=== PATIENT | female | born 1995 | race Caucasian/White ===

== ENCOUNTER 2018-02-03 23:31 | Inpatient (IN) | payer OTHER ==
[2018-02-04] MEDS ORDERED: MISOPROSTOL 200 MCG TAB PR (00:30)
[2018-02-04] MEDS ORDERED: LIDOCAINE 1% (MPF) 30 ML INJ INJ (00:30)
[2018-02-04] MEDS ORDERED: BUTORPHANOL 2 MG INJ IV (00:30)
[2018-02-04] MEDS ORDERED: CARBOPROST 250 MCG INJ IM (00:30)
[2018-02-04] MEDS ORDERED: OXYTOCIN 30 UNITS/LR 500 ML IV (00:30)
[2018-02-04] MEDS ORDERED: IBUPROFEN 600 MG TAB PO (00:30)
[2018-02-04] MEDS ORDERED: METHYLERGONOVINE 0.2 MG INJ IM (00:30)
[2018-02-04 01:20] LABS: ADD MAN DIFF? NO
[2018-02-04 01:21] LABS: BASOPHILS % 0.2 % (0.0-2.0); EOSINOPHILS # 0.1 10^3/ul (0.0-0.5); EOSINOPHILS % 0.6 % (0.0-7.0); HEMATOCRIT 36.4 % (37.0-47.0); HEMOGLOBIN 12.9 g/dl (12.0-16.0); LYMPHOCYTES # 2.1 10^3/ul (0.8-2.9); LYMPHOCYTES % 19.9 % (15.0-51.0); MEAN CORPUSCULAR HEMOGLOBIN 33.7 pg (29.0-33.0); MEAN CORPUSCULAR HGB CONC 35.4 g/dl (32.0-37.0); MONOCYTE # 0.7 10^3/ul (0.3-0.9); MONOCYTES % 6.2 % (0.0-11.0); NEUTROPHIL # 7.8 10^3/ul (1.6-7.5); NEUTROPHILS % 72.7 % (39.0-77.0); PLATELET COUNT 182 10^3/UL (140-415); RED BLOOD COUNT 3.83 10^6/ul (4.20-5.40); RED CELL DISTRIBUTION WIDTH 11.9 % (11.5-14.5)
[2018-02-04 01:21] LABS: WHITE BLOOD COUNT 10.7 10^3/ul (4.8-10.8)
[2018-02-04 01:38] LABS: INR 0.84; PARTIAL THROMBOPLASTIN TIME 24.8 Sec (25.0-35.0); PROTIME 11.6 Sec (11.9-14.9); PT RATIO 0.9
[2018-02-04] MEDS: LACTATED RINGER'S 1,000 ML IV ×4 (01:49→17:47)
[2018-02-04] MEDS: AMPICILLIN 2 GM/NS (PMX) 100 ML IV (01:49)
[2018-02-04 02:16] LABS: ALANINE AMINOTRANSFERASE 16 IU/L (13-69); ALBUMIN 3.4 g/dl (3.3-4.9); ALBUMIN/GLOBULIN RATIO 1.21; ALKALINE PHOSPHATASE 210 IU/L (42-121); ANION GAP 15 (8-16); ASPARTATE AMINO TRANSFERASE 16 IU/L (15-46); BILIRUBIN,INDIRECT 0.1 mg/dl (0-1.1); BILIRUBIN,TOTAL 0.1 mg/dl (0.2-1.3); BLOOD UREA NITROGEN 10 mg/dl (7-20); CALCIUM 9.2 mg/dl (8.4-10.2); CARBON DIOXIDE 21 mmol/L (21-31); CHLORIDE 107 mmol/L (97-110); GLUCOSE 82 mg/dl (70-220); SODIUM 139 mmol/L (135-144); TOTAL PROTEIN 6.2 g/dl (6.1-8.1); URIC ACID 4.1 mg/dl (3.1-7.9)
[2018-02-04 03:17] LABS: HEPATITIS B SURFACE ANTIGEN NEGATIVE (NEGATIVE)
[2018-02-04] MEDS: AMPICILLIN 1 GM/NS (PMX) 50 ML IV ×5 (04:47→21:26)
[2018-02-04] MEDS: OXYTOCIN 30 UNITS/LR 500 ML IV (09:26)
[2018-02-04 09:30] LABS: ADD UMIC NO; UR ASCORBIC ACID NEGATIVE (NEGATIVE); UR BILIRUBIN (Dip) NEGATIVE (NEGATIVE); UR BLOOD (Dip) NEGATIVE (NEGATIVE); UR CLARITY CLEAR (CLEAR); UR COLOR YELLOW (YELLOW); UR GLUCOSE (Dip) NEGATIVE (NEGATIVE); UR KETONES (Dip) NEGATIVE (NEGATIVE); UR LEUKOCYTE ESTERASE (Dip) NEGATIVE Leu/ul (NEGATIVE); UR NITRITE (Dip) NEGATIVE (NEGATIVE); UR SPECIFIC GRAVITY (Dip) 1.015 (1.003-1.030); UR TOTAL PROTEIN (Dip) NEGATIVE (NEGATIVE); UR UROBILINOGEN (Dip) NEGATIVE (NEGATIVE)
[2018-02-04 15:11] LABS: RAPID PLASMA REAGIN NONREACTIVE (NR)
[2018-02-04] MEDS ORDERED: FENTAnyl 2MCG/ML-ROPIV 0.2% 100 ML (15:50)
[2018-02-04] MEDS ORDERED: ONDANSETRON 4 MG INJ (18:35)
[2018-02-04] MEDS: ONDANSETRON 4 MG INJ IV (18:37)
[2018-02-04] MEDS ORDERED: NALOXONE (0.4 MG/ML) INJ IV (21:30)
[2018-02-04] MEDS: FENTAnyl 2MCG/ML-ROPIV 0.2% 100 ML BAG EPI ×2 (22:56→23:09)
[2018-02-05] MEDS: LACTATED RINGER'S 1,000 ML IV (00:34)
[2018-02-05] MEDS: AMPICILLIN 1 GM/NS (PMX) 50 ML IV (01:47)
[2018-02-05] MEDS: OXYTOCIN 30 UNITS/LR 500 ML IV ×3 (03:24→07:00)
[2018-02-05] MEDS: MINERAL OIL LIGHT 10 ML VIAL TOP (03:39)
[2018-02-05] MEDS ORDERED: CARBOPROST 250 MCG INJ IM (04:00)
[2018-02-05] MEDS ORDERED: METHYLERGONOVINE 0.2 MG INJ IM (04:00)
[2018-02-05] MEDS ORDERED: OXYTOCIN 30 UNITS/LR 500 ML IV (04:00)
[2018-02-05] MEDS ORDERED: LANOLIN 7 GM TUBE TOP (04:00)
[2018-02-05] MEDS ORDERED: HYDROCODONE/APAP (5/325) TAB PO (04:00)
[2018-02-05] MEDS ORDERED: MISOPROSTOL 200 MCG TAB PR (04:00)
[2018-02-05] MEDS: IBUPROFEN 600 MG TAB PO ×3 (07:30→17:53)
[2018-02-05] MEDS: LACTATED RINGER'S 1,000 ML IV* ×2 (08:33→11:32)
[2018-02-05] MEDS: BENZOCAINE 20% 56 ML SPRAY TOP (12:05)
[2018-02-06] MEDS: IBUPROFEN 600 MG TAB PO ×5 (00:44→23:38)
[2018-02-06 09:08] LABS: ADD MAN DIFF? NO
[2018-02-06 09:13] LABS: WHITE BLOOD COUNT 9.8 10^3/ul (4.8-10.8)
[2018-02-06 09:13] LABS: BASOPHILS % 0.3 % (0.0-2.0); EOSINOPHILS # 0.1 10^3/ul (0.0-0.5); EOSINOPHILS % 0.8 % (0.0-7.0); HEMATOCRIT 31.3 % (37.0-47.0); HEMOGLOBIN 10.9 g/dl (12.0-16.0); LYMPHOCYTES # 1.5 10^3/ul (0.8-2.9); LYMPHOCYTES % 15.7 % (15.0-51.0); MEAN CORPUSCULAR HEMOGLOBIN 34.2 pg (29.0-33.0); MEAN CORPUSCULAR HGB CONC 34.8 g/dl (32.0-37.0); MEAN CORPUSCULAR VOLUME 98.1 fl (82.0-101.0); MONOCYTE # 0.5 10^3/ul (0.3-0.9); MONOCYTES % 5.3 % (0.0-11.0); NEUTROPHIL # 7.6 10^3/ul (1.6-7.5); NEUTROPHILS % 77.5 % (39.0-77.0); PLATELET COUNT 163 10^3/UL (140-415); RED BLOOD COUNT 3.19 10^6/ul (4.20-5.40); RED CELL DISTRIBUTION WIDTH 12.2 % (11.5-14.5)
[2018-02-07] MEDS: IBUPROFEN 600 MG TAB PO ×2 (05:41→11:32)
[2018-02-07] MEDS: DIPHTH/TET/ACEL PERTUSS (ADULT) 0.5 ML VIAL IM* (09:00)
== END 2018-02-07 14:15 | disposition home or self-care (01) | DRG 775 ==
LOC: OBT 23:31 → PP1 02-05 05:40 → L-D 23:33 → OBT 02-04 00:13 → L-D 02-04 00:15
PROVIDERS: Obstetrics & Gynecology
PROC: 10E0XZZ Delivery of Products of Conception, External Approach (ICD-10-PCS; principal; 2018-02-05)
PROC: 0KQM0ZZ Repair Perineum Muscle, Open Approach (ICD-10-PCS; 2018-02-05)
DX: O99.824 Streptococcus B carrier state complicating childbirth (principal); O70.1 Second degree perineal laceration during delivery; O69.81X0 Labor and delivery complicated by cord around neck, without compression, not applicable or unspecified; Z3A.39 39 weeks gestation of pregnancy; Z37.0 Single live birth
CPT/HCPCS: 36415; 62319; 76815; 80053; 81003; 84560; 85025; 85610; 85730; 86592; 86850; 86900; 86901; 87340